=== PATIENT | female | born 1955 | race Caucasian/White ===

== ENCOUNTER → 2017-04-03 | Outpatient (CLI) | payer OTHER ==
[2016-05-20 11:40] VITALS: BP 169/93
[~2017-04-03] MED LIST: ATIVAN1 M1 PO; BYSTOLIC10 MG PO; GENTAMICIN OPTHA3 GM OD; KEPPRA1000 MG PO; LEXAPRO20 M1 PO; PATANOL OPHTHALM5 ML OD; PREMARIN1.25 M1 PO; SYNTHROID0.15 MG PO; SYNTHROID175 MCG PO; VIMPAT200 MG PO
== END ==
LOC: LAB 09:25
DX: R53.83 Other fatigue (principal); E61.1 Iron deficiency; R10.84 Generalized abdominal pain

== ENCOUNTER → 2017-04-06 | Outpatient (CLI) | payer OTHER ==
[2016-05-20 11:40] VITALS: BP 169/93
== END ==
LOC: LAB 07:54
DX: R53.83 Other fatigue (principal); E61.1 Iron deficiency

== ENCOUNTER → 2017-05-03 | Outpatient (CLI) | payer OTHER ==
[2016-05-20 11:40] VITALS: BP 169/93
== END ==
LOC: LAB 15:07
DX: E03.9 Hypothyroidism, unspecified (principal); I10 Essential (primary) hypertension; G47.33 Obstructive sleep apnea (adult) (pediatric); G40.802 Other epilepsy, not intractable, without status epilepticus

== ENCOUNTER → 2017-05-22 | Outpatient (CLI) | payer OTHER ==
[2016-05-20 11:40] VITALS: BP 169/93
== END ==
LOC: LAB 12:44
DX: R53.83 Other fatigue (principal); E61.1 Iron deficiency; E03.4 Atrophy of thyroid (acquired)

== ENCOUNTER → 2017-07-08 | Outpatient (CLI) | payer OTHER ==
[2016-05-20 11:40] VITALS: BP 169/93
== END ==
LOC: LAB 15:11
DX: Z00.00 Encounter for general adult medical examination without abnormal findings (principal); I10 Essential (primary) hypertension; E03.9 Hypothyroidism, unspecified; Z12.11 Encounter for screening for malignant neoplasm of colon; E61.1 Iron deficiency

== ENCOUNTER → 2017-07-09 | Outpatient (CLI) | payer OTHER ==
[2016-05-20 11:40] VITALS: BP 169/93
== END ==
LOC: MAMMO 12:53
DX: Z12.31 Encounter for screening mammogram for malignant neoplasm of breast (principal)
CPT/HCPCS: G0202

== ENCOUNTER → 2017-08-08 | Outpatient (CLI) | payer OTHER ==
[2016-05-20 11:40] VITALS: BP 169/93
== END ==
LOC: LAB 13:24
DX: Z12.11 Encounter for screening for malignant neoplasm of colon (principal)

== ENCOUNTER → 2017-08-08 | Outpatient (CLI) | payer OTHER ==
[2016-05-20 11:40] VITALS: BP 169/93
== END ==
LOC: MAMMO 13:15
DX: R92.8 Other abnormal and inconclusive findings on diagnostic imaging of breast (principal)

== ENCOUNTER → 2018-02-18 | Outpatient (CLI) | payer OTHER ==
[2016-05-20 11:40] VITALS: BP 169/93
[2018-02-18 10:36] LABS: EOS % 0.6 % (1.0-5.0); HEMATOCRIT 43.8 % (37.0-47.0); HEMOGLOBIN 14.2 g/dL (12.5-16.0); LYMPH# 2.6 (1.50-4.00); MEAN CELL VOLUME 94 fl (78-100); MEAN CORPUSCULAR HEMOGLOBIN 30 pg (27-31); MEAN CORPUSCULAR HGB CONC 32 g/dL (33-37); MONO # 0.7 (0.20-0.80); NEU # 3.4 (1.40-6.50); PLATELET COUNT 272 K/mm3 (130-400); RED BLOOD COUNT 4.67 M/mm3 (4.10-5.30); RED CELL DISTRIBUTION WIDTH 12.8 % (11.5-14.5); WHITE BLOOD COUNT 6.8 K/mm3 (4.8-10.8)
[2018-02-18 10:50] LABS: ALBUMIN 4.3 g/dL (3.5-5.0); CALCIUM 9.5 mg/dL (8.4-10.2); POTASSIUM 4.2 mmol/L (3.6-5.0); TOTAL BILIRUBIN 0.3 mg/dL (0.2-1.3); TOTAL PROTEIN 8.3 g/dL (6.3-8.2)
[2018-02-18 11:40] LABS: ERYTHROCYTE SEDIMENTATION RATE 23 mm/hr (0-30)
[2018-02-19 01:22] LABS: T3 TOTAL 139 ng/dL (87-178)
== END ==
LOC: LAB 10:20
PROVIDERS: Internal Medicine
DX: Z00.00 Encounter for general adult medical examination without abnormal findings (principal); Z12.11 Encounter for screening for malignant neoplasm of colon; E61.1 Iron deficiency; I10 Essential (primary) hypertension; R20.2 Paresthesia of skin; E03.9 Hypothyroidism, unspecified; G40.802 Other epilepsy, not intractable, without status epilepticus; Z88.1 Allergy status to other antibiotic agents; Z88.2 Allergy status to sulfonamides

== ENCOUNTER → 2018-05-13 | Outpatient (CLI) | payer OTHER ==
[2016-05-20 11:40] VITALS: BP 169/93
== END ==
LOC: LAB 11:12
PROVIDERS: Internal Medicine
DX: Z00.00 Encounter for general adult medical examination without abnormal findings (principal); E03.9 Hypothyroidism, unspecified; G40.802 Other epilepsy, not intractable, without status epilepticus

== ENCOUNTER → 2018-09-08 | Outpatient (CLI) | payer OTHER ==
[2016-05-20 11:40] VITALS: BP 169/93
[2018-09-08 12:23] LABS: EOS # 0.1 (0.04-0.40); EOS % 1.7 % (1.0-5.0); HEMATOCRIT 37.1 % (37.0-47.0); HEMOGLOBIN 12.6 g/dL (12.5-16.0); LYMPH# 2.9 (1.50-4.00); MEAN CELL VOLUME 95 fl (78-100); MEAN CORPUSCULAR HEMOGLOBIN 32 pg (27-31); MEAN CORPUSCULAR HGB CONC 34 g/dL (33-37); MEAN PLATELET VOLUME 9.9 fl (7.4-10.4); MONO # 0.8 (0.20-0.80); NEU # 4.1 (1.40-6.50); PLATELET COUNT 252 K/mm3 (130-400); RED BLOOD COUNT 3.92 M/mm3 (4.10-5.30); RED CELL DISTRIBUTION WIDTH 12.1 % (11.5-14.5)
[2018-09-08 13:03] LABS: ALBUMIN 4.1 g/dL (3.5-5.0); CALCIUM 9.5 mg/dL (8.4-10.2); POTASSIUM 3.9 mmol/L (3.6-5.0); TOTAL BILIRUBIN 0.4 mg/dL (0.2-1.3)
[2018-09-08 13:45] LABS: ERYTHROCYTE SEDIMENTATION RATE 21 mm/hr (0-30)
[2018-09-09 01:42] LABS: T3 TOTAL 127 ng/dL (87-178)
== END ==
LOC: LAB 11:58
PROVIDERS: Internal Medicine
DX: Z00.00 Encounter for general adult medical examination without abnormal findings (principal); I10 Essential (primary) hypertension; E03.9 Hypothyroidism, unspecified; R20.2 Paresthesia of skin; E61.1 Iron deficiency

== ENCOUNTER 2018-12-26 08:42 | Outpatient (RCR) | payer OTHER ==
[2018-10-02 13:50] VITALS: BP 183/100
[2018-10-02 14:03] VITALS: BP 189/100
[2018-10-09 13:30] VITALS: BP 173/103
--- NOTE | 2018-10-09 13:45 | NUR ---
Pt BP high while here. Pt reports that she has not taken her BP med yet today and is heading to pharmacy to shrimp picker today. Denies any symptoms from high BP.
[2018-10-09 13:47] VITALS: BP 186/104
--- NOTE | 2018-10-09 13:50 | NUR ---
Pt leaves ambulatory w/ steady gait.
[2018-10-21 12:23] VITALS: BP 156/92
[2018-10-28 12:51] VITALS: BP 172/94
[2018-11-25 13:49] VITALS: BP 185/102
[2018-11-25 15:07] VITALS: BP 180/95
--- NOTE | 2018-11-25 15:10 | NUR ---
Message left with Hallie at Dr. Harmon's office regarding patients high blood pressure. Faxed list of BP's from outpatient visits to Dr. Harmon. Patient plans to call clinic tomorrow to address hypertension. Denies symptoms. Denies need to be seen in ED. Ambulatory out of facility. Steady gait noted.
[~2018-12-26] VITALS: Ht 160 cm; Wt 83.6 kg
[~2018-12-26 08:42] MED LIST changes: +BYSTOLIC20 MG PO
[2018-12-26 09:56] VITALS: BP 166/85
[2018-12-26 11:02] VITALS: BP 180/91
== END 2018-12-31 | disposition home or self-care (01) ==
LOC: AMSURD
DX: E61.1 Iron deficiency (principal); K90.89 Other intestinal malabsorption
CPT/HCPCS: J2916

== ENCOUNTER 2019-03-30 10:44 | Outpatient (RCR) | payer OTHER ==
[2019-01-26 12:00] VITALS: BP 198/96
[2019-01-26 13:49] VITALS: BP 132/78
[2019-02-25 13:16] VITALS: BP 175/94
[2019-02-25 14:21] VITALS: BP 160/94
[~2019-03-30] VITALS: Ht 160 cm; Wt 83.6 kg
[2019-03-30 10:52] VITALS: BP 184/97
[2019-03-30 11:49] VITALS: BP 209/107
== END 2019-04-26 | disposition still patient (30) ==
LOC: AMSURD
DX: E61.1 Iron deficiency (principal); K90.9 Intestinal malabsorption, unspecified
CPT/HCPCS: J2916; J7050

== ENCOUNTER 2019-06-27 12:51 | Outpatient (RCR) | payer OTHER ==
[2019-04-28 14:36] VITALS: BP 160/100
[2019-05-28 13:10] VITALS: BP 127/72
[2019-05-28 14:15] VITALS: BP 138/52
[~2019-06-27] VITALS: Ht 160 cm; Wt 83.6 kg
[2019-06-27 13:08] VITALS: BP 144/70
[2019-06-27 14:00] VITALS: BP 177/89
[2019-07-29] MEDS ORDERED: TEGRETOL X200 MG/TA1 PO (14:07)
[2019-07-29] MEDS ORDERED: LEVOTHYROXINE175 MCG PO (14:07)
== END 2019-07-27 | disposition still patient (30) ==
LOC: AMSURD
DX: E61.1 Iron deficiency (principal); K90.9 Intestinal malabsorption, unspecified
CPT/HCPCS: J2916

== ENCOUNTER → 2019-07-23 | Outpatient (CLI) | payer OTHER ==
[2019-06-27 14:00] VITALS: BP 177/89
[~2019-07-23] MED LIST changes: +LEVOTHYROXINE175 MCG PO; +TEGRETOL X200 MG/TA1 PO
[2019-07-23 12:22] LABS: EOS # 0.1 (0.04-0.40); EOS % 0.8 % (1.0-5.0); HEMATOCRIT 37.7 % (37.0-47.0); HEMOGLOBIN 12.6 g/dL (12.5-16.0); LYMPH# 3.5 (1.50-4.00); MEAN CELL VOLUME 98 fl (78-100); MEAN CORPUSCULAR HEMOGLOBIN 33 pg (27-31); MEAN CORPUSCULAR HGB CONC 33 g/dL (33-37); MEAN PLATELET VOLUME 10.5 fl (7.4-10.4); NEU # 3.9 (1.40-6.50); PLATELET COUNT 200 K/mm3 (130-400); RED BLOOD COUNT 3.85 M/mm3 (4.10-5.30); WHITE BLOOD COUNT 8.6 K/mm3 (4.8-10.8)
[2019-07-23 12:32] LABS: ALBUMIN 4.3 g/dL (3.4-4.8); POTASSIUM 3.2 mmol/L (3.5-5.1)
[2019-07-23 12:33] LABS: CALCIUM 9.6 mg/dL (8.3-10.5)
[2019-07-23 12:34] LABS: TOTAL PROTEIN 7.4 g/dL (6.2-8.1)
[2019-07-23 12:36] LABS: TOTAL BILIRUBIN 0.4 mg/dL (0.2-1.2)
[2019-07-23 12:41] LABS: MAGNESIUM 1.62 mg/dL (1.60-2.60)
[2019-07-23 13:26] LABS: ERYTHROCYTE SEDIMENTATION RATE 16 mm/hr (0-30)
[2019-07-24 00:29] LABS: T3 TOTAL 109 ng/dL (87-178)
== END ==
LOC: LAB 12:00
PROVIDERS: Internal Medicine
DX: Z00.00 Encounter for general adult medical examination without abnormal findings (principal); Z12.11 Encounter for screening for malignant neoplasm of colon; E61.1 Iron deficiency; I10 Essential (primary) hypertension; E03.9 Hypothyroidism, unspecified; K90.89 Other intestinal malabsorption

== ENCOUNTER → 2019-07-29 | Outpatient (CLI) | payer OTHER ==
[2019-07-29 14:17] LABS: POTASSIUM 3.9 mmol/L (3.5-5.1)
[2019-07-29 14:18] LABS: CALCIUM 9.4 mg/dL (8.3-10.5)
[2019-07-29 14:25] LABS: MAGNESIUM 1.83 mg/dL (1.60-2.60)
== END ==
LOC: LAB 13:52
PROVIDERS: Internal Medicine
DX: E87.6 Hypokalemia (principal)

== ENCOUNTER 2019-08-29 12:47 | Outpatient (RCR) | payer OTHER ==
[2019-07-29 10:30] VITALS: BP 158/108
[2019-07-29 15:00] VITALS: BP 178/105
[~2019-08-29] VITALS: Ht 160 cm; Wt 83.6 kg
[2019-08-29 12:58] VITALS: BP 184/135
[2019-08-29 14:28] VITALS: BP 176/105
== END 2019-08-29 18:00 | disposition home or self-care (01) ==
LOC: AMSURD 12:47
DX: E61.1 Iron deficiency (principal); K90.9 Intestinal malabsorption, unspecified
CPT/HCPCS: J2916

== ENCOUNTER 2019-10-17 11:21 | Emergency (ER) | payer OTHER ==
[~2019-10-17] VITALS: Ht 160 cm; Wt 79.0 kg
[2019-10-17 11:50] LABS: EOS # 0.1 (0.04-0.40); EOS % 0.6 % (1.0-5.0); HEMATOCRIT 43.7 % (37.0-47.0); HEMOGLOBIN 14.2 g/dL (12.5-16.0); MEAN CELL VOLUME 99 fl (78-100); MEAN CORPUSCULAR HEMOGLOBIN 32 pg (27-31); MEAN CORPUSCULAR HGB CONC 33 g/dL (33-37); MEAN PLATELET VOLUME 10.4 fl (7.4-10.4); MONO # 0.8 (0.20-0.80); NEU # 4.7 (1.40-6.50); PLATELET COUNT 219 K/mm3 (130-400); RED BLOOD COUNT 4.43 M/mm3 (4.10-5.30); RED CELL DISTRIBUTION WIDTH 12.4 % (11.5-14.5); WHITE BLOOD COUNT 7.7 K/mm3 (4.8-10.8)
[2019-10-17 12:00] LABS: URINE APPEARANCE CLEAR; URINE BILIRUBIN NEGATIVE (NEGATIVE); URINE BLOOD NEGATIVE (NEGATIVE); URINE COLOR STRAW; URINE GLUCOSE NEGATIVE (NEGATIVE); URINE KETONE NEGATIVE (NEGATIVE); URINE LEUKOCYTE ESTERASE NEGATIVE (NEGATIVE); URINE NITRATE NEGATIVE (NEGATIVE); URINE PROTEIN(semi-quant) NEGATIVE (NEGATIVE); URINE UROBILINOGEN NORMAL (NORMAL); URINE WBC 0-1 /hpf (0-3)
[2019-10-17 12:01] LABS: ALBUMIN 4.4 g/dL (3.4-4.8)
[2019-10-17 12:02] LABS: CALCIUM 9.8 mg/dL (8.3-10.5)
[2019-10-17 12:03] LABS: TOTAL PROTEIN 7.8 g/dL (6.2-8.1)
[2019-10-17 12:05] LABS: TOTAL BILIRUBIN 0.4 mg/dL (0.2-1.2)
[2019-10-17] MEDS ORDERED: FAMOTIDINE20 MG PO (15:47)
[2019-10-17] MEDS ORDERED: ZOFRAN ODT4 MG PO (15:47)
[2019-10-17 16:05] VITALS: BP 189/110
== END 2019-10-17 16:06 | disposition home or self-care (01) ==
LOC: ED 11:21
PROVIDERS: Family Medicine
DX: K52.9 Noninfective gastroenteritis and colitis, unspecified (principal); I10 Essential (primary) hypertension; G40.909 Epilepsy, unspecified, not intractable, without status epilepticus; Z90.710 Acquired absence of both cervix and uterus; Z90.49 Acquired absence of other specified parts of digestive tract; Z87.442 Personal history of urinary calculi

== ENCOUNTER 2019-12-07 12:34 | Outpatient (RCR) | payer BC ==
[2019-10-02 14:15] VITALS: BP 176/95
[2019-11-06 13:27] VITALS: BP 169/109
[~2019-12-07] VITALS: Ht 160 cm; Wt 77.3 kg
[~2019-12-07 12:34] MED LIST changes: +FAMOTIDINE20 MG PO; +ZOFRAN ODT4 MG PO
[2019-12-07 13:15] VITALS: BP 188/97
[2019-12-07 14:27] VITALS: BP 194/78
[2019-12-28] MEDS ORDERED: FYCOMPA2 MG PO (14:03)
[2019-12-28] MEDS ORDERED: VITAMIN D350 MC2 PO (14:06)
[2019-12-28] MEDS ORDERED: HYZAAR 100-251 EACH PO (16:41)
== END 2019-12-31 | disposition still patient (30) ==
LOC: AMSURD
DX: E61.1 Iron deficiency (principal); K90.9 Intestinal malabsorption, unspecified
CPT/HCPCS: J2916

== ENCOUNTER 2019-12-28 13:52 | Emergency (ER) | payer BC ==
[~2019-12-28] VITALS: Ht 160 cm; Wt 80.9 kg
[2019-12-28] MEDS ORDERED: FYCOMPA2 MG PO (14:03)
[2019-12-28] MEDS ORDERED: VITAMIN D350 MC2 PO (14:06)
[2019-12-28 14:34] LABS: ALBUMIN 4.5 g/dL (3.4-4.8); HEMOGLOBIN 14.4 g/dL (12.5-16.0); MEAN CELL VOLUME 99 fl (78-100); MEAN CORPUSCULAR HEMOGLOBIN 32 pg (27-31); MEAN CORPUSCULAR HGB CONC 33 g/dL (33-37); MEAN PLATELET VOLUME 10.3 fl (7.4-10.4); PLATELET COUNT 252 K/mm3 (130-400); POTASSIUM 3.8 mmol/L (3.5-5.1); RED BLOOD COUNT 4.45 M/mm3 (4.10-5.30); RED CELL DISTRIBUTION WIDTH 13.2 % (11.5-14.5); SODIUM 140 mmol/L (136-145); WHITE BLOOD COUNT 6.7 K/mm3 (4.8-10.8)
[2019-12-28 14:35] LABS: CALCIUM 10.1 mg/dL (8.3-10.5); LYMPHOCYTE 37 % (20-51); MONOCYTE 15 % (3-10); NEUTROPHILS 46 % (42-75)
[2019-12-28 14:37] LABS: GLUCOSE 113 mg/dL (65-105); TOTAL PROTEIN 7.7 g/dL (6.2-8.1)
[2019-12-28 14:38] LABS: CARBON DIOXIDE 26 mmol/L (23-31); TOTAL BILIRUBIN 0.6 mg/dL (0.2-1.2)
[2019-12-28 14:42] LABS: AST-SGOT 32 U/L (5-34)
[2019-12-28 14:43] LABS: ALT/SGPT 38 U/L (0-55)
[2019-12-28 14:49] LABS: TROPONIN-I < 0.03 ng/mL (<0.030)
[2019-12-28] MEDS ORDERED: HYZAAR 100-251 EACH PO (16:41)
[2019-12-28 16:55] VITALS: BP 160/95
[2019-12-28 17:15] LABS: URINE APPEARANCE CLEAR; URINE BILIRUBIN NEGATIVE (NEGATIVE); URINE BLOOD NEGATIVE (NEGATIVE); URINE COLOR YELLOW; URINE GLUCOSE NEGATIVE (NEGATIVE); URINE KETONE NEGATIVE (NEGATIVE); URINE LEUKOCYTE ESTERASE NEGATIVE (NEGATIVE); URINE NITRATE NEGATIVE (NEGATIVE); URINE PROTEIN(semi-quant) 1+ mg/dL (NEGATIVE); URINE UROBILINOGEN NORMAL (NORMAL)
== END 2019-12-28 16:58 | disposition home or self-care (01) ==
LOC: ED 13:52
PROVIDERS: Internal Medicine; Nurse Practitioner Primary Care
DX: I16.0 Hypertensive urgency (principal); I10 Essential (primary) hypertension; G40.909 Epilepsy, unspecified, not intractable, without status epilepticus; Z88.0 Allergy status to penicillin; Z88.2 Allergy status to sulfonamides

== ENCOUNTER 2020-01-07 16:32 | Emergency (ER) | payer BC ==
[~2020-01-07] VITALS: Ht 160 cm; Wt 78.2 kg
[~2020-01-07 16:32] MED LIST changes: +FYCOMPA2 MG PO; +HYZAAR 100-251 EACH PO; +VITAMIN D350 MC2 PO
[2020-01-07] MEDS ORDERED: COZAAR100 MG PO (16:49)
[2020-01-07 19:01] VITALS: BP 164/96
== END 2020-01-07 18:51 | disposition home or self-care (01) ==
LOC: ED 16:32
DX: I10 Essential (primary) hypertension (principal); G40.909 Epilepsy, unspecified, not intractable, without status epilepticus; Z88.0 Allergy status to penicillin; Z88.2 Allergy status to sulfonamides

== ENCOUNTER 2020-03-28 13:05 | Outpatient (RCR) | payer BC ==
[2020-01-23 13:10] VITALS: BP 179/115
[2020-01-23 14:39] VITALS: BP 180/98
[2020-02-24 13:05] VITALS: BP 198/101
[2020-02-24 14:41] VITALS: BP 188/96
[2020-02-24 14:42] VITALS: BP 188/96
[~2020-03-28] VITALS: Ht 160 cm; Wt 78.2 kg
[~2020-03-28 13:05] MED LIST changes: +AMLODIPINE BESYL5 MG PO; +COZAAR100 MG PO
[2020-03-28 13:30] VITALS: BP 126/60
[2020-03-28] MEDS ORDERED: HYZAAR 100-251 EACH PO (14:04)
[2020-03-28] MEDS ORDERED: FAMOTIDINE20 MG PO (14:05)
[2020-03-28 15:01] VITALS: BP 134/54
== END 2020-04-22 | disposition still patient (30) ==
LOC: AMSURD
DX: E61.1 Iron deficiency (principal); K90.9 Intestinal malabsorption, unspecified
CPT/HCPCS: J2916

== ENCOUNTER → 2020-06-06 | Outpatient (CLI) | payer BC ==
[2020-06-04 16:10] VITALS: BP 188/86
[~2020-06-06] MED LIST changes: +VITAMIN D21250 MCG PO
[2020-06-06 15:28] LABS: HEMATOCRIT 42.8 % (37.0-47.0); HEMOGLOBIN 14.2 g/dL (12.5-16.0); MEAN CELL VOLUME 96 fl (78-100); MEAN CORPUSCULAR HEMOGLOBIN 32 pg (27-31); MEAN CORPUSCULAR HGB CONC 33 g/dL (33-37); MEAN PLATELET VOLUME 10.2 fl (7.4-10.4); PLATELET COUNT 254 K/mm3 (130-400); RED BLOOD COUNT 4.47 M/mm3 (4.10-5.30); WHITE BLOOD COUNT 8.4 K/mm3 (4.8-10.8)
[2020-06-06 15:41] LABS: ALBUMIN 4.3 g/dL (3.4-4.8); POTASSIUM 3.9 mmol/L (3.5-5.1)
[2020-06-06 15:42] LABS: CALCIUM 9.4 mg/dL (8.3-10.5)
[2020-06-06 15:44] LABS: TOTAL PROTEIN 7.5 g/dL (6.2-8.1)
[2020-06-06 15:45] LABS: TOTAL BILIRUBIN 0.4 mg/dL (0.2-1.2)
[2020-06-06 15:50] LABS: MAGNESIUM 1.77 mg/dL (1.60-2.60)
[2020-06-06 16:20] LABS: LYMPHOCYTE 26 % (20-51); MONOCYTE 10 % (3-10); NEUTROPHILS 63 % (42-75)
[2020-06-06 16:47] LABS: ERYTHROCYTE SEDIMENTATION RATE 13 mm/hr (0-30)
[2020-06-07 15:14] LABS: LEVETIRACETAM (KEPPRA) 59 ug/mL (5-45)
[2020-06-08 09:14] LABS: T3 TOTAL 120 ng/dL (60-180)
== END ==
LOC: LAB 15:01
PROVIDERS: Internal Medicine
DX: Z00.00 Encounter for general adult medical examination without abnormal findings (principal); Z12.11 Encounter for screening for malignant neoplasm of colon; G40.909 Epilepsy, unspecified, not intractable, without status epilepticus; I10 Essential (primary) hypertension; E61.1 Iron deficiency; E03.9 Hypothyroidism, unspecified

== ENCOUNTER 2020-07-02 14:06 | Outpatient (RCR) | payer BC ==
[2020-04-30 11:18] VITALS: BP 168/82
[2020-04-30 11:50] VITALS: BP 146/62
[2020-06-04 15:12] VITALS: BP 189/95
[2020-06-04 16:10] VITALS: BP 188/86
[~2020-07-02] VITALS: Ht 160 cm; Wt 78.2 kg
[2020-07-02 14:24] VITALS: BP 151/81
== END 2020-07-02 14:15 | disposition still patient (30) ==
LOC: AMSURD 14:06
DX: E61.1 Iron deficiency (principal); K90.9 Intestinal malabsorption, unspecified
CPT/HCPCS: J2916

== ENCOUNTER → 2020-09-22 | Outpatient (CLI) | payer BC ==
[2020-09-20 13:30] VITALS: BP 153/85
[~2020-09-22] MED LIST changes: +LOSARTAN POTAS100 MG PO
[2020-09-22 12:47] LABS: EOS # 0.1 (0.04-0.40); EOS % 0.8 % (1.0-5.0); HEMATOCRIT 43.5 % (37.0-47.0); HEMOGLOBIN 14.6 g/dL (12.5-16.0); LYMPH# 2.9 (1.50-4.00); MEAN CELL VOLUME 97 fl (78-100); MEAN CORPUSCULAR HEMOGLOBIN 33 pg (27-31); MEAN CORPUSCULAR HGB CONC 34 g/dL (33-37); MEAN PLATELET VOLUME 10.5 fl (7.4-10.4); MONO # 1.1 (0.20-0.80); NEU # 5.9 (1.40-6.50); PLATELET COUNT 292 K/mm3 (130-400); RED BLOOD COUNT 4.47 M/mm3 (4.10-5.30); RED CELL DISTRIBUTION WIDTH 12.8 % (11.5-14.5); WHITE BLOOD COUNT 10.1 K/mm3 (4.8-10.8)
[2020-09-22 13:01] LABS: ALBUMIN 4.4 g/dL (3.4-4.8)
[2020-09-22 13:02] LABS: POTASSIUM 3.4 mmol/L (3.5-5.1)
[2020-09-22 13:03] LABS: CALCIUM 10.1 mg/dL (8.3-10.5)
[2020-09-22 13:06] LABS: TOTAL BILIRUBIN 0.6 mg/dL (0.2-1.2)
== END ==
LOC: LAB 12:19
PROVIDERS: Internal Medicine
DX: G40.909 Epilepsy, unspecified, not intractable, without status epilepticus (principal)

== ENCOUNTER → 2020-10-10 | Outpatient (CLI) | payer BC ==
[2020-09-20 13:30] VITALS: BP 153/85
== END ==
LOC: RAD 08:52
DX: M19.071 Primary osteoarthritis, right ankle and foot (principal)

== ENCOUNTER 2020-10-17 13:07 | Outpatient (RCR) | payer BC ==
[2020-08-12 13:58] VITALS: BP 187/98
[2020-08-12 15:08] VITALS: BP 223/120
--- NOTE | 2020-08-12 15:09 | NUR ---
PT REQUESTS TO LEAVE AFTER DISCHARGE BP TAKEN. REPORTS SHE IS WORKED UP AFTER TALKING ABOUT RECENT EVENTS AND THAT SHE HASNT TAKEN HER BP MEDS TODAY. "THATS NORMAL FOR ME" PT SIGNS AMA FORM.
[2020-09-20 13:30] VITALS: BP 153/85
[~2020-10-17] VITALS: Ht 160 cm; Wt 78.2 kg
[2020-10-17 13:39] VITALS: BP 169/98
== END 2020-10-24 | disposition home or self-care (01) ==
LOC: AMSURD
DX: E61.1 Iron deficiency (principal); K90.9 Intestinal malabsorption, unspecified
CPT/HCPCS: J2916

== ENCOUNTER 2020-11-26 13:14 | Outpatient (RCR) | payer BC ==
[2020-11-26 14:00] VITALS: BP 133/70
[2020-11-26 15:27] VITALS: BP 158/96
[2020-12-19] MEDS ORDERED: LEXAPRO 10MG10 MG PO (20:06)
[2020-12-19] MEDS ORDERED: ZOFRAN ODT4 MG PO (22:00)
[2020-12-19] MEDS ORDERED: CIPRO500 M1 PO (22:00)
[2021-02-23] MEDS ORDERED: PROTONIX20 M1 PO (19:07)
[2021-02-23] MEDS ORDERED: POTASSIUM CHLO20 ME3 PO (19:26)
== END 2021-02-24 ==
LOC: AMSURD
DX: E61.1 Iron deficiency (principal); K90.89 Other intestinal malabsorption
CPT/HCPCS: J2916

== ENCOUNTER 2020-12-19 18:32 | Emergency (ER) | payer BC ==
[2020-12-19 19:12] LABS: ALBUMIN 3.3 g/dL (3.4-4.8)
[2020-12-19 19:14] LABS: TOTAL PROTEIN 7.1 g/dL (6.2-8.1)
[2020-12-19 19:28] LABS: CALCIUM 8.5 mg/dL (8.3-10.5)
[2020-12-19 19:31] LABS: TOTAL BILIRUBIN 0.4 mg/dL (0.2-1.2)
[2020-12-19 19:32] LABS: WHITE BLOOD COUNT 24.7 K/mm3 (4.8-10.8)
[2020-12-19 19:33] LABS: HEMATOCRIT 39.9 % (37.0-47.0); HEMOGLOBIN 13.6 g/dL (12.5-16.0); MEAN CELL VOLUME 100 fl (78-100); MEAN CORPUSCULAR HEMOGLOBIN 34 pg (27-31); MEAN CORPUSCULAR HGB CONC 34 g/dL (33-37); MEAN PLATELET VOLUME 10.1 fl (7.4-10.4); PLATELET COUNT 256 K/mm3 (130-400); RED BLOOD COUNT 4.01 M/mm3 (4.10-5.30); RED CELL DISTRIBUTION WIDTH 12.7 % (11.5-14.5)
[2020-12-19 19:37] LABS: POTASSIUM 2.5 mmol/L (3.5-5.1)
[2020-12-19] MEDS ORDERED: LEXAPRO 10MG10 MG PO (20:06)
[2020-12-19 20:22] LABS: URINE APPEARANCE CLOUDY; URINE BILIRUBIN 2+ (NEGATIVE); URINE COLOR YELLOW; URINE GLUCOSE NEGATIVE (NEGATIVE); URINE KETONE 1+ (NEGATIVE); URINE PROTEIN(semi-quant) 2+ mg/dL (NEGATIVE)
[2020-12-19 20:23] LABS: URINE BLOOD 50 ery/uL (NEGATIVE); URINE LEUKOCYTE ESTERASE 2+ (NEGATIVE); URINE NITRATE NEGATIVE (NEGATIVE); URINE UROBILINOGEN 1 mg/dL (NORMAL); URINE WBC >50 /hpf (0-3)
[2020-12-19 20:31] LABS: LYMPHOCYTE 9 % (20-51); MONOCYTE 13 % (3-10); NEUTROPHILS 78 % (42-75); TEAR DROP CELLS 1+
[2020-12-19] MEDS ORDERED: ZOFRAN ODT4 MG PO (22:00)
[2020-12-19] MEDS ORDERED: CIPRO500 M1 PO (22:00)
[2020-12-19 22:14] VITALS: BP 148/76
== END 2020-12-19 22:14 | disposition home or self-care (01) ==
LOC: ED 18:32
PROVIDERS: Nurse Practitioner
DX: N12 Tubulo-interstitial nephritis, not specified as acute or chronic (principal); E87.6 Hypokalemia; G40.909 Epilepsy, unspecified, not intractable, without status epilepticus; I10 Essential (primary) hypertension; K21.9 Gastro-esophageal reflux disease without esophagitis; Z20.822 Contact with and (suspected) exposure to COVID-19; Z90.710 Acquired absence of both cervix and uterus; Z85.43 Personal history of malignant neoplasm of ovary; Z90.49 Acquired absence of other specified parts of digestive tract; Z88.0 Allergy status to penicillin; Z88.2 Allergy status to sulfonamides; Z88.6 Allergy status to analgesic agent; Z79.890 Hormone replacement therapy
CPT/HCPCS: J0744; J1885; J3010; J7030; Q9967

== ENCOUNTER → 2020-12-20 | Outpatient (CLI) | payer BC ==
[2020-12-19 22:14] VITALS: BP 148/76
[~2020-12-20] MED LIST changes: +CIPRO500 M1 PO; +ELIQUIS5 MG PO; +LEXAPRO 10MG10 MG PO; +LOPRESSOR 550 MG/TAB PO; +POTASSIUM CHLO20 ME3 PO; +PROTONIX20 M1 PO; +SYNTHROID112 MCG PO; +VITAMIN D3250 MC1 PO
[2020-12-20 13:43] LABS: ALBUMIN 3.1 g/dL (3.4-4.8)
[2020-12-20 13:45] LABS: CALCIUM 8.3 mg/dL (8.3-10.5)
[2020-12-20 13:46] LABS: TOTAL PROTEIN 6.7 g/dL (6.2-8.1)
[2020-12-20 13:48] LABS: TOTAL BILIRUBIN 0.5 mg/dL (0.2-1.2)
[2020-12-20 14:22] LABS: HEMATOCRIT 37.3 % (37.0-47.0); HEMOGLOBIN 12.4 g/dL (12.5-16.0); MEAN CELL VOLUME 103 fl (78-100); MEAN CORPUSCULAR HEMOGLOBIN 34 pg (27-31); MEAN CORPUSCULAR HGB CONC 33 g/dL (33-37); MEAN PLATELET VOLUME 10.2 fl (7.4-10.4); PLATELET COUNT 256 K/mm3 (130-400); POTASSIUM 2.6 mmol/L (3.5-5.1); RED BLOOD COUNT 3.61 M/mm3 (4.10-5.30); WHITE BLOOD COUNT 21.9 K/mm3 (4.8-10.8)
[2020-12-20 14:23] LABS: LYMPHOCYTE 8 % (20-51); MONOCYTE 10 % (3-10); NEUTROPHILS 81 % (42-75)
== END ==
LOC: LAB 12:44
PROVIDERS: Internal Medicine
DX: I10 Essential (primary) hypertension (principal)

== ENCOUNTER 2021-02-23 15:37 | Emergency (ER) | payer BC ==
[~2021-02-23 15:37] MED LIST changes: -ELIQUIS5 MG PO; -LOPRESSOR 550 MG/TAB PO; -POTASSIUM CHLO20 ME3 PO; -PROTONIX20 M1 PO; -SYNTHROID112 MCG PO; -VITAMIN D3250 MC1 PO
[2021-02-23 16:28] LABS: BASO # 0.08 (0.02-0.10); EOS # 0.03 (0.04-0.40); EOS % 0.3 % (1.0-5.0); HEMATOCRIT 41.3 % (37.0-47.0); HEMOGLOBIN 14.4 g/dL (12.5-16.0); LYMPH# 3.06 (1.50-4.00); MEAN CELL VOLUME 98 fl (78-100); MEAN CORPUSCULAR HEMOGLOBIN 34 pg (27-31); MEAN CORPUSCULAR HGB CONC 35 g/dL (33-37); MEAN PLATELET VOLUME 9.9 fl (7.4-10.4); MONO # 1.47 (0.20-0.80); PLATELET COUNT 325 K/mm3 (130-400); RED CELL DISTRIBUTION WIDTH 12.8 % (11.5-14.5); WHITE BLOOD COUNT 11.1 K/mm3 (4.8-10.8)
[2021-02-23 16:55] LABS: ALBUMIN 4.3 g/dL (3.4-4.8); SODIUM 138 mmol/L (136-145)
[2021-02-23 16:56] LABS: CALCIUM 10.1 mg/dL (8.3-10.5)
[2021-02-23 16:58] LABS: GLUCOSE 113 mg/dL (65-105); TOTAL PROTEIN 8.1 g/dL (6.2-8.1)
[2021-02-23 16:59] LABS: CARBON DIOXIDE 22 mmol/L (23-31); TOTAL BILIRUBIN 0.4 mg/dL (0.2-1.2)
[2021-02-23 17:03] LABS: AST-SGOT 32 U/L (5-34)
[2021-02-23 17:04] LABS: ALT/SGPT 32 U/L (0-55)
[2021-02-23 17:18] LABS: TROPONIN-I < 0.03 ng/mL (<0.030)
[2021-02-23 18:36] LABS: URINE APPEARANCE HAZY; URINE COLOR LIGHT PINK
[2021-02-23 18:37] LABS: URINE BILIRUBIN NEGATIVE (NEGATIVE); URINE BLOOD NEGATIVE (NEGATIVE); URINE GLUCOSE NEGATIVE (NEGATIVE); URINE KETONE NEGATIVE (NEGATIVE); URINE LEUKOCYTE ESTERASE NEGATIVE (NEGATIVE); URINE NITRATE NEGATIVE (NEGATIVE); URINE PROTEIN(semi-quant) TRACE mg/dL (NEGATIVE); URINE UROBILINOGEN NORMAL (NORMAL); URINE WBC 0-1 /hpf (0-3)
[2021-02-23] MEDS ORDERED: PROTONIX20 M1 PO (19:07)
[2021-02-23 19:22] VITALS: BP 145/89
[2021-02-23] MEDS ORDERED: POTASSIUM CHLO20 ME3 PO (19:26)
== END 2021-02-23 19:22 | disposition home or self-care (01) ==
LOC: ED 15:37
PROVIDERS: Nurse Practitioner
DX: R11.2 Nausea with vomiting, unspecified (principal); R10.13 Epigastric pain; I10 Essential (primary) hypertension; Z88.0 Allergy status to penicillin; Z88.2 Allergy status to sulfonamides; Z88.6 Allergy status to analgesic agent; Z79.890 Hormone replacement therapy; Z79.899 Other long term (current) drug therapy
CPT/HCPCS: C9113; J2405; J7030

== ENCOUNTER 2021-03-15 15:00 | Emergency (ER) | payer BC ==
[~2021-03-15 15:00] MED LIST changes: +POTASSIUM CHLO20 ME3 PO; +PROTONIX20 M1 PO
[2021-03-15 15:51] LABS: ALBUMIN 4.1 g/dL (3.4-4.8); POTASSIUM 3.7 mmol/L (3.5-5.1); SODIUM 132 mmol/L (136-145)
[2021-03-15 15:52] LABS: CALCIUM 9.7 mg/dL (8.3-10.5)
[2021-03-15 15:53] LABS: GLUCOSE 220 mg/dL (65-105); TOTAL PROTEIN 7.8 g/dL (6.2-8.1)
[2021-03-15 15:55] LABS: TOTAL BILIRUBIN 0.6 mg/dL (0.2-1.2)
[2021-03-15 15:58] LABS: AST-SGOT 39 U/L (5-34)
[2021-03-15 16:00] LABS: ALT/SGPT 51 U/L (0-55)
[2021-03-15 16:05] LABS: CARBON DIOXIDE 17 mmol/L (23-31)
[2021-03-15 16:07] LABS: TROPONIN-I < 0.03 ng/mL (<0.030)
[2021-03-15 16:13] LABS: BASO # 0.05 (0.02-0.10); EOS # 0.04 (0.04-0.40); EOS % 0.3 % (1.0-5.0); HEMATOCRIT 44.8 % (37.0-47.0); HEMOGLOBIN 15.2 g/dL (12.5-16.0); LYMPH# 2.52 (1.50-4.00); MEAN CELL VOLUME 99 fl (78-100); MEAN CORPUSCULAR HEMOGLOBIN 34 pg (27-31); MEAN CORPUSCULAR HGB CONC 34 g/dL (33-37); MEAN PLATELET VOLUME 10.4 fl (7.4-10.4); MONO # 1.21 (0.20-0.80); NEU # 9.01 (1.40-6.50); PLATELET COUNT 299 K/mm3 (130-400); RED BLOOD COUNT 4.52 M/mm3 (4.10-5.30); RED CELL DISTRIBUTION WIDTH 12.3 % (11.5-14.5); WHITE BLOOD COUNT 12.9 K/mm3 (4.8-10.8)
[2021-03-15 16:17] LABS: PROTHROMBIN TIME 10.4 SECONDS (9.0-12.0)
[2021-03-15 17:18] LABS: URINE APPEARANCE CLOUDY; URINE COLOR YELLOW
[2021-03-15 17:19] LABS: URINE BILIRUBIN NEGATIVE (NEGATIVE); URINE BLOOD TRACE (NEGATIVE); URINE GLUCOSE NEGATIVE (NEGATIVE); URINE KETONE NEGATIVE (NEGATIVE); URINE LEUKOCYTE ESTERASE TRACE (NEGATIVE); URINE NITRATE NEGATIVE (NEGATIVE); URINE PROTEIN(semi-quant) 2+ mg/dL (NEGATIVE); URINE UROBILINOGEN NORMAL (NORMAL); URINE WBC 0-1 /hpf (0-3)
[2021-03-15 19:52] VITALS: BP 145/80
== END 2021-03-15 19:52 | disposition short-term general hospital (02) ==
LOC: ED 15:00
PROVIDERS: Physician Assistant
DX: I48.91 Unspecified atrial fibrillation (principal); R55 Syncope and collapse; G40.909 Epilepsy, unspecified, not intractable, without status epilepticus; E05.90 Thyrotoxicosis, unspecified without thyrotoxic crisis or storm; I10 Essential (primary) hypertension; K21.9 Gastro-esophageal reflux disease without esophagitis; F41.9 Anxiety disorder, unspecified; Z88.0 Allergy status to penicillin; Z88.2 Allergy status to sulfonamides; Z79.890 Hormone replacement therapy; Z79.899 Other long term (current) drug therapy; Z20.822 Contact with and (suspected) exposure to COVID-19
CPT/HCPCS: J7030

== ENCOUNTER 2021-04-03 13:55 | Outpatient (RCR) | payer BC ==
[2021-02-05 14:08] VITALS: BP 177/108
[2021-04-03 14:08] VITALS: BP 160/121
[2021-04-03] MEDS ORDERED: LOPRESSOR 550 MG/TAB PO (14:36)
[2021-04-03] MEDS ORDERED: ELIQUIS5 MG PO (14:36)
[2021-04-03] MEDS ORDERED: SYNTHROID112 MCG PO (14:38)
[2021-04-03] MEDS ORDERED: VITAMIN D3250 MC1 PO (14:41)
[2021-04-03 15:27] VITALS: BP 164/92
== END 2021-05-06 | disposition home or self-care (01) ==
LOC: AMSURD
DX: K90.9 Intestinal malabsorption, unspecified (principal); E61.1 Iron deficiency
CPT/HCPCS: J2916

== ENCOUNTER → 2021-05-04 | Day surgery (SDC) | payer BC ==
[~2021-05-04] MED LIST changes: +ELIQUIS5 MG PO; +LOPRESSOR 550 MG/TAB PO; +SYNTHROID112 MCG PO; +VITAMIN D3250 MC1 PO
== END ==
LOC: MSO 07:22
DX: K21.00 Gastro-esophageal reflux disease with esophagitis, without bleeding (principal); R10.13 Epigastric pain; Z80.0 Family history of malignant neoplasm of digestive organs; D50.9 Iron deficiency anemia, unspecified; I48.91 Unspecified atrial fibrillation; I10 Essential (primary) hypertension; E03.9 Hypothyroidism, unspecified; E66.9 Obesity, unspecified; F32.9 Major depressive disorder, single episode, unspecified; F41.9 Anxiety disorder, unspecified; E55.9 Vitamin D deficiency, unspecified; R56.9 Unspecified convulsions; Z79.890 Hormone replacement therapy; C56.9 Malignant neoplasm of unspecified ovary; Z85.43 Personal history of malignant neoplasm of ovary; Z79.01 Long term (current) use of anticoagulants
CPT/HCPCS: 00813; J2704; J7120

== ENCOUNTER 2021-05-22 14:17 | Outpatient (RCR) | payer BC ==
[~2021-05-22] VITALS: Ht 160 cm; Wt 78.2 kg
[2021-05-22 14:46] VITALS: BP 107/82
[2021-05-22 15:44] VITALS: BP 141/96
== END 2021-08-20 | disposition home or self-care (01) ==
LOC: AMSURD
DX: Z79.899 Other long term (current) drug therapy (principal)
CPT/HCPCS: J1756

== ENCOUNTER → 2021-05-22 | Outpatient (CLI) | payer BC ==
[2021-05-22 16:57] LABS: BASO # 0.03 (0.02-0.10); EOS # 0.08 (0.04-0.40); EOS % 1.1 % (1.0-5.0); HEMATOCRIT 39.7 % (37.0-47.0); HEMOGLOBIN 13.3 g/dL (12.5-16.0); MEAN CELL VOLUME 102 fl (78-100); MEAN CORPUSCULAR HEMOGLOBIN 34 pg (27-31); MEAN CORPUSCULAR HGB CONC 34 g/dL (33-37); MONO # 0.95 (0.20-0.80); NEU # 3.78 (1.40-6.50); PLATELET COUNT 182 K/mm3 (130-400); RED BLOOD COUNT 3.88 M/mm3 (4.10-5.30); RED CELL DISTRIBUTION WIDTH 12.6 % (11.5-14.5); WHITE BLOOD COUNT 7.3 K/mm3 (4.8-10.8)
[2021-05-22 17:02] LABS: ALBUMIN 3.7 g/dL (3.4-4.8); POTASSIUM 4.1 mmol/L (3.5-5.1)
[2021-05-22 17:04] LABS: TOTAL PROTEIN 7.1 g/dL (6.2-8.1)
[2021-05-22 17:06] LABS: TOTAL BILIRUBIN 0.4 mg/dL (0.2-1.2)
[2021-05-22 17:11] LABS: MAGNESIUM 1.76 mg/dL (1.60-2.60)
== END ==
LOC: LAB 14:20
PROVIDERS: Internal Medicine
DX: I48.0 Paroxysmal atrial fibrillation (principal); E03.4 Atrophy of thyroid (acquired); K90.9 Intestinal malabsorption, unspecified

== ENCOUNTER → 2021-06-19 | Outpatient (CLI) | payer BC | LOC: LAB 14:51 | DX: K90.9 Intestinal malabsorption, unspecified (principal); E03.4 Atrophy of thyroid (acquired) ==

== ENCOUNTER → 2021-09-22 | Outpatient (CLI) | payer BC | LOC: CARDLAB 06-09 14:23 → CARDREHAB 08:31 | DX: I48.0 Paroxysmal atrial fibrillation (principal) | CPT/HCPCS: A9500 ==

== ENCOUNTER → 2021-10-12 | Outpatient (CLI) | payer BC | LOC: LAB 11:41 | DX: K90.9 Intestinal malabsorption, unspecified (principal); E03.4 Atrophy of thyroid (acquired) ==

== ENCOUNTER → 2021-12-12 | Outpatient (CLI) | payer BC ==
[2021-12-12 09:40] LABS: BASO # 0.04 K/mm3 (0.02-0.10); EOS # 0.11 K/mm3 (0.04-0.40); EOS % 1.1 % (1.0-5.0); HEMATOCRIT 41.8 % (37.0-47.0); HEMOGLOBIN 14.4 g/dL (12.5-16.0); LYMPH# 3.25 K/mm3 (1.50-4.00); MEAN CELL VOLUME 102 fl (78-100); MEAN CORPUSCULAR HEMOGLOBIN 35 pg (27-31); MEAN CORPUSCULAR HGB CONC 34 g/dL (33-37); MEAN PLATELET VOLUME 11.1 fl (7.4-10.4); MONO # 1.18 K/mm3 (0.20-0.80); NEU # 5.06 K/mm3 (1.40-6.50); PLATELET COUNT 241 K/mm3 (130-400); RED BLOOD COUNT 4.09 M/mm3 (4.10-5.30); WHITE BLOOD COUNT 9.7 K/mm3 (4.8-10.8)
[2021-12-12 10:26] LABS: ALBUMIN 3.9 g/dL (3.4-4.8); POTASSIUM 3.4 mmol/L (3.5-5.1)
[2021-12-12 10:28] LABS: TOTAL PROTEIN 7.5 g/dL (6.2-8.1)
[2021-12-12 10:30] LABS: TOTAL BILIRUBIN 0.6 mg/dL (0.2-1.2)
[2021-12-12 10:35] LABS: MAGNESIUM 1.61 mg/dL (1.60-2.60)
[2021-12-13 13:46] LABS: ANA SCREEN with REFLEX Negative (Negative)
[2021-12-14 21:18] LABS: LEVETIRACETAM (KEPPRA) 64 ug/mL (5-45)
== END ==
LOC: LAB 08:49
PROVIDERS: Internal Medicine
DX: I48.0 Paroxysmal atrial fibrillation (principal); E03.4 Atrophy of thyroid (acquired); K90.9 Intestinal malabsorption, unspecified; G40.909 Epilepsy, unspecified, not intractable, without status epilepticus; Z20.822 Contact with and (suspected) exposure to COVID-19

== ENCOUNTER → 2022-07-17 | Outpatient (CLI) | payer BC ==
[2022-07-17 16:02] LABS: BASO # 0.05 K/mm3 (0.02-0.10); EOS # 0.02 K/mm3 (0.04-0.40); EOS % 0.2 % (1.0-5.0); HEMATOCRIT 44.3 % (37.0-47.0); HEMOGLOBIN 14.9 g/dL (12.5-16.0); LYMPH# 2.14 K/mm3 (1.50-4.00); MEAN CELL VOLUME 111 fl (78-100); MEAN CORPUSCULAR HEMOGLOBIN 37 pg (27-31); MEAN CORPUSCULAR HGB CONC 34 g/dL (33-37); MEAN PLATELET VOLUME 10.1 fl (7.4-10.4); MONO # 1.14 K/mm3 (0.20-0.80); NEU # 4.73 K/mm3 (1.40-6.50); PLATELET COUNT 193 K/mm3 (130-400); RED BLOOD COUNT 4.01 M/mm3 (4.10-5.30); RED CELL DISTRIBUTION WIDTH 11.7 % (11.5-14.5); WHITE BLOOD COUNT 8.2 K/mm3 (4.8-10.8)
[2022-07-17 16:16] LABS: POTASSIUM 4.4 mmol/L (3.5-5.1)
[2022-07-17 16:17] LABS: CALCIUM 9.6 mg/dL (8.3-10.5)
[2022-07-17 16:18] LABS: TOTAL PROTEIN 7.7 g/dL (6.2-8.1)
[2022-07-17 16:24] LABS: MAGNESIUM 1.92 mg/dL (1.60-2.60)
[2022-07-17 17:46] LABS: TOTAL BILIRUBIN 0.7 mg/dL (0.2-1.2)
[2022-07-19 05:48] LABS: LEVETIRACETAM (KEPPRA) 68 ug/mL (5-45)
== END ==
LOC: LAB 15:22
PROVIDERS: Internal Medicine
DX: I48.0 Paroxysmal atrial fibrillation (principal); G40.909 Epilepsy, unspecified, not intractable, without status epilepticus; E03.4 Atrophy of thyroid (acquired); K90.9 Intestinal malabsorption, unspecified

== ENCOUNTER → 2022-09-12 | Outpatient (CLI) | payer BC, MEDICARE ==
[2022-09-12 12:58] LABS: BASO # 0.07 K/mm3 (0.02-0.10); EOS % 1.1 % (1.0-5.0); HEMATOCRIT 45.6 % (37.0-47.0); HEMOGLOBIN 15.2 g/dL (12.5-16.0); LYMPH# 2.64 K/mm3 (1.50-4.00); MEAN CELL VOLUME 112 fl (78-100); MEAN CORPUSCULAR HEMOGLOBIN 37 pg (27-31); MEAN CORPUSCULAR HGB CONC 33 g/dL (33-37); MEAN PLATELET VOLUME 10.5 fl (7.4-10.4); MONO # 1.23 K/mm3 (0.20-0.80); NEU # 5.05 K/mm3 (1.40-6.50); PLATELET COUNT 182 K/mm3 (130-400); RED BLOOD COUNT 4.09 M/mm3 (4.10-5.30); RED CELL DISTRIBUTION WIDTH 11.7 % (11.5-14.5); WHITE BLOOD COUNT 9.1 K/mm3 (4.8-10.8)
[2022-09-12 14:05] LABS: POTASSIUM 4.9 mmol/L (3.5-5.1)
[2022-09-12 14:06] LABS: ALBUMIN 4.4 g/dL (3.4-4.8); CALCIUM 10.2 mg/dL (8.3-10.5)
[2022-09-12 14:08] LABS: TOTAL PROTEIN 7.9 g/dL (6.2-8.1)
[2022-09-12 14:09] LABS: TOTAL BILIRUBIN 0.4 mg/dL (0.2-1.2)
== END ==
LOC: LAB 12:23
PROVIDERS: Internal Medicine
DX: E03.4 Atrophy of thyroid (acquired) (principal)

== ENCOUNTER → 2022-09-20 | Outpatient (CLI) | payer BC, MEDICARE ==
[2022-09-20 13:19] LABS: HEMATOCRIT 48.2 % (37.0-47.0); HEMOGLOBIN 16.3 g/dL (12.5-16.0); MEAN PLATELET VOLUME 10.8 fl (7.4-10.4); RED BLOOD COUNT 4.4 M/mm3 (4.10-5.30); RED CELL DISTRIBUTION WIDTH 11.1 % (11.5-14.5); WHITE BLOOD COUNT 9.7 K/mm3 (4.8-10.8)
== END ==
LOC: LAB 13:01
PROVIDERS: Internal Medicine Medical Oncology
DX: E83.119 Hemochromatosis, unspecified (principal)

== ENCOUNTER → 2023-01-18 | Outpatient (CLI) | payer MEDICARE ==
[2023-01-18 14:00] LABS: HEMATOCRIT 41.5 % (37.0-47.0); HEMOGLOBIN 13.6 g/dL (12.5-16.0)
== END ==
LOC: LAB 13:36
PROVIDERS: Internal Medicine Medical Oncology
DX: E83.119 Hemochromatosis, unspecified (principal)

== ENCOUNTER → 2023-07-01 | Outpatient (CLI) | payer MEDICARE ==
[~2023-07-01] VITALS: Ht 160 cm; Wt 90.2 kg
[2023-07-01 13:49] LABS: BASO # 0.05 K/mm3 (0.02-0.10); EOS % 1.1 % (1.0-5.0); HEMATOCRIT 42.6 % (37.0-47.0); HEMOGLOBIN 13.5 g/dL (12.5-16.0); LYMPH# 2.69 K/mm3 (1.50-4.00); MEAN CELL VOLUME 101 fl (78-100); MEAN CORPUSCULAR HEMOGLOBIN 32 pg (27-31); MEAN CORPUSCULAR HGB CONC 32 g/dL (33-37); MEAN PLATELET VOLUME 9.9 fl (7.4-10.4); MONO # 1.16 K/mm3 (0.20-0.80); NEU # 5.37 K/mm3 (1.40-6.50); PLATELET COUNT 247 K/mm3 (130-400); RED BLOOD COUNT 4.21 M/mm3 (4.10-5.30); RED CELL DISTRIBUTION WIDTH 12.4 % (11.5-14.5); WHITE BLOOD COUNT 9.4 K/mm3 (4.8-10.8)
[2023-07-01 14:03] LABS: ALBUMIN 4.1 g/dL (3.4-4.8); POTASSIUM 5.4 mmol/L (3.5-5.1)
[2023-07-01 14:04] LABS: CALCIUM 10.5 mg/dL (8.3-10.5)
[2023-07-01 14:05] LABS: TOTAL PROTEIN 7.6 g/dL (6.2-8.1)
[2023-07-01 14:07] LABS: TOTAL BILIRUBIN 0.5 mg/dL (0.2-1.2)
[2023-07-01 14:35] VITALS: BP 111/79
[2023-07-01 15:20] VITALS: BP 130/78
== END ==
LOC: LAB 13:29
DX: E83.119 Hemochromatosis, unspecified (principal)
CPT/HCPCS: J7040

== ENCOUNTER → 2023-08-16 | Outpatient (CLI) | payer MEDICARE ==
[2023-08-16 12:31] LABS: BASO # 0.03 K/mm3 (0.02-0.10); EOS # 0.12 K/mm3 (0.04-0.40); EOS % 1.5 % (1.0-5.0); HEMATOCRIT 39.5 % (37.0-47.0); HEMOGLOBIN 12.7 g/dL (12.5-16.0); LYMPH# 2.82 K/mm3 (1.50-4.00); MEAN CELL VOLUME 101 fl (78-100); MEAN CORPUSCULAR HEMOGLOBIN 32 pg (27-31); MEAN CORPUSCULAR HGB CONC 32 g/dL (33-37); MEAN PLATELET VOLUME 10.8 fl (7.4-10.4); MONO # 1.12 K/mm3 (0.20-0.80); NEU # 3.63 K/mm3 (1.40-6.50); PLATELET COUNT 220 K/mm3 (130-400); RED BLOOD COUNT 3.93 M/mm3 (4.10-5.30); RED CELL DISTRIBUTION WIDTH 12.6 % (11.5-14.5); WHITE BLOOD COUNT 7.8 K/mm3 (4.8-10.8)
[2023-08-16 12:39] LABS: ALBUMIN 3.8 g/dL (3.4-4.8)
[2023-08-16 12:40] LABS: CALCIUM 9.5 mg/dL (8.3-10.5)
[2023-08-16 12:42] LABS: TOTAL PROTEIN 7.4 g/dL (6.2-8.1)
[2023-08-16 12:43] LABS: TOTAL BILIRUBIN 0.2 mg/dL (0.2-1.2)
== END ==
LOC: LAB 11:04
PROVIDERS: Internal Medicine
DX: E83.119 Hemochromatosis, unspecified (principal)

== ENCOUNTER 2023-09-10 11:07 | Outpatient (RCR) | payer MEDICARE ==
[~2023-09-10] VITALS: Ht 160 cm; Wt 90.2 kg
[2023-09-10 12:18] VITALS: BP 181/111
== END 2023-09-19 | disposition home or self-care (01) ==
LOC: AMSURD
DX: E83.119 Hemochromatosis, unspecified (principal)
CPT/HCPCS: J7040

== ENCOUNTER 2023-10-03 11:00 | Outpatient (RCR) | payer MEDICARE ==
[2023-09-25 11:30] VITALS: BP 119/60
[~2023-10-03] VITALS: Ht 160 cm; Wt 90.2 kg
[2023-10-03 11:00] VITALS: BP 177/107
--- NOTE | 2023-10-03 12:23 | NUR ---
CONTACTED DR. VALENCIA's NURSE TO NOTIFY OF LAB VALUES. AWAITNG CALL BACK.
--- NOTE | 2023-10-03 12:39 | NUR ---
[facility] AT THIS [facility] AND NOTIFIED THIS NURSE THAT [facility] WANTS TO SKIP TODAYS THERAPEUTIC PHLEBOTOMY. PATIENT IS TO SEE THEM IN CLINIC 10/07/23 AND WILL REPORT ANY NEW ORDERS THEY COME. PATIENT AND LAB AWARE.
== END 2023-10-20 | disposition home or self-care (01) ==
LOC: AMSURD
DX: E83.119 Hemochromatosis, unspecified (principal)
CPT/HCPCS: J7040

== ENCOUNTER → 2024-03-05 | Outpatient (CLI) | payer MEDICARE ==
[~2024-03-05] MED LIST changes: +CELEXA 20MG20 MG/TA1 PO
[2024-04-30 13:26] LABS: BASO # 0.04 K/mm3 (0.02-0.10); EOS # 0.15 K/mm3 (0.04-0.40); EOS % 1.9 % (1.0-5.0); HEMATOCRIT 41.7 % (37.0-47.0); HEMOGLOBIN 13.3 g/dL (12.5-16.0); LYMPH# 2.24 K/mm3 (1.50-4.00); MEAN CELL VOLUME 100 fl (78-100); MEAN CORPUSCULAR HEMOGLOBIN 32 pg (27-31); MEAN CORPUSCULAR HGB CONC 32 g/dL (33-37); MEAN PLATELET VOLUME 10.6 fl (7.4-10.4); NEU # 4.46 K/mm3 (1.40-6.50); PLATELET COUNT 231 K/mm3 (130-400); RED BLOOD COUNT 4.16 M/mm3 (4.10-5.30); RED CELL DISTRIBUTION WIDTH 12.8 % (11.5-14.5); WHITE BLOOD COUNT 7.7 K/mm3 (4.8-10.8)
[2024-04-30 13:43] LABS: CALCIUM 9.5 mg/dL (8.3-10.5); MAGNESIUM 1.96 mg/dL (1.60-2.60); TOTAL BILIRUBIN 0.3 mg/dL (0.2-1.2)
[2024-05-01 14:35] LABS: LEVETIRACETAM (KEPPRA) 51.8
== END ==
LOC: LAB 08:00
PROVIDERS: Internal Medicine
DX: I48.0 Paroxysmal atrial fibrillation (principal); E78.2 Mixed hyperlipidemia; G40.909 Epilepsy, unspecified, not intractable, without status epilepticus; K90.9 Intestinal malabsorption, unspecified; E03.4 Atrophy of thyroid (acquired)

== ENCOUNTER → 2024-04-16 | Outpatient (CLI) | payer MEDICARE ==
[2024-04-16 12:52] LABS: BASO # 0.05 K/mm3 (0.02-0.10); EOS # 0.15 K/mm3 (0.04-0.40); EOS % 1.6 % (1.0-5.0); HEMATOCRIT 43.8 % (37.0-47.0); LYMPH# 2.17 K/mm3 (1.50-4.00); MEAN CELL VOLUME 101 fl (78-100); MEAN CORPUSCULAR HEMOGLOBIN 32 pg (27-31); MEAN CORPUSCULAR HGB CONC 32 g/dL (33-37); MEAN PLATELET VOLUME 10.5 fl (7.4-10.4); MONO # 0.96 K/mm3 (0.20-0.80); NEU # 5.83 K/mm3 (1.40-6.50); RED BLOOD COUNT 4.32 M/mm3 (4.10-5.30); RED CELL DISTRIBUTION WIDTH 13.5 % (11.5-14.5); WHITE BLOOD COUNT 9.2 K/mm3 (4.8-10.8)
[2024-04-16 13:21] LABS: PLATELET COUNT 165 K/mm3 (130-400)
== END ==
LOC: LAB 12:23
PROVIDERS: Internal Medicine
DX: E83.119 Hemochromatosis, unspecified (principal)

== ENCOUNTER → 2024-04-22 | Outpatient (CLI) | payer MEDICARE ==
[2024-04-22 12:33] LABS: HEMATOCRIT 41.9 % (37.0-47.0); HEMOGLOBIN 13.6 g/dL (12.5-16.0)
== END ==
LOC: LAB 12:07
PROVIDERS: Internal Medicine
DX: E83.119 Hemochromatosis, unspecified (principal)

== ENCOUNTER → 2024-04-30 | Outpatient (CLI) | payer MEDICARE ==
[2024-04-30 13:50] LABS: HEMATOCRIT 38.5 % (37.0-47.0); HEMOGLOBIN 12.6 g/dL (12.5-16.0)
== END ==
LOC: LAB 13:19
PROVIDERS: Internal Medicine
DX: E83.119 Hemochromatosis, unspecified (principal)

== ENCOUNTER → 2024-05-04 | Outpatient (CLI) | payer MEDICARE | LOC: LAB 12:34 | DX: E83.119 Hemochromatosis, unspecified (principal) ==

== ENCOUNTER → 2024-07-02 | Outpatient (CLI) | payer MEDICARE ==
[2024-07-02 14:31] LABS: HEMATOCRIT 39.8 % (37.0-47.0); HEMOGLOBIN 12.9 g/dL (12.5-16.0)
== END ==
LOC: LAB 14:35
PROVIDERS: Internal Medicine
DX: I95.1 Orthostatic hypotension (principal); E83.119 Hemochromatosis, unspecified

== ENCOUNTER → 2024-07-09 | Outpatient (CLI) | payer MEDICARE ==
[~2024-07-09] MED LIST changes: +NS 500 ML IV SCH
[2024-07-09 11:45] LABS: HEMATOCRIT 33.9 % (37.0-47.0); HEMOGLOBIN 11.2 g/dL (12.5-16.0)
== END ==
LOC: LAB 10:59
PROVIDERS: Internal Medicine
DX: E83.119 Hemochromatosis, unspecified (principal)

== ENCOUNTER → 2024-07-16 | Outpatient (CLI) | payer MEDICARE ==
[~2024-07-16] MED LIST changes: +LASIX20 M1 PO; -NS 500 ML IV SCH
[2024-07-16 12:30] LABS: HEMOGLOBIN 10.3 g/dL (12.5-16.0)
== END ==
LOC: LAB 12:00
DX: E83.119 Hemochromatosis, unspecified (principal)

== ENCOUNTER → 2024-07-27 | Outpatient (CLI) | payer MEDICARE ==
[~2024-07-27] MED LIST changes: -LASIX20 M1 PO
[2024-07-27 13:59] LABS: BASO # 0.04 K/mm3 (0.02-0.10); EOS # 0.07 K/mm3 (0.04-0.40); EOS % 0.6 % (1.0-5.0); HEMATOCRIT 30.6 % (37.0-47.0); LYMPH# 1.94 K/mm3 (1.50-4.00); MEAN CELL VOLUME 98 fl (78-100); MEAN CORPUSCULAR HEMOGLOBIN 32 pg (27-31); MEAN CORPUSCULAR HGB CONC 33 g/dL (33-37); MONO # 0.99 K/mm3 (0.20-0.80); NEU # 7.84 K/mm3 (1.40-6.50); PLATELET COUNT 304 K/mm3 (130-400); RED BLOOD COUNT 3.13 M/mm3 (4.10-5.30)
[2024-07-27 14:00] LABS: CALCIUM 9.6 mg/dL (8.3-10.5)
[2024-07-27 14:01] LABS: TOTAL PROTEIN 7.1 g/dL (6.2-8.1)
[2024-07-27 14:03] LABS: TOTAL BILIRUBIN 0.2 mg/dL (0.2-1.2)
[2024-07-27 14:09] LABS: MAGNESIUM 1.67 mg/dL (1.60-2.60)
== END ==
LOC: LAB 07:15
PROVIDERS: Internal Medicine
DX: Z12.11 Encounter for screening for malignant neoplasm of colon (principal); E83.119 Hemochromatosis, unspecified; E03.4 Atrophy of thyroid (acquired); I10 Essential (primary) hypertension; K90.9 Intestinal malabsorption, unspecified; E78.2 Mixed hyperlipidemia; R73.9 Hyperglycemia, unspecified

== ENCOUNTER → 2024-08-04 | Outpatient (CLI) | payer MEDICARE ==
[~2024-08-04] MED LIST changes: +LASIX20 M1 PO
[2024-08-04 10:46] LABS: BASO # 0.03 K/mm3 (0.02-0.10); EOS # 0.17 K/mm3 (0.04-0.40); EOS % 1.8 % (1.0-5.0); HEMATOCRIT 29.1 % (37.0-47.0); LYMPH# 1.46 K/mm3 (1.50-4.00); MEAN CELL VOLUME 100 fl (78-100); MEAN CORPUSCULAR HEMOGLOBIN 31 pg (27-31); MEAN CORPUSCULAR HGB CONC 31 g/dL (33-37); MEAN PLATELET VOLUME 10.5 fl (7.4-10.4); MONO # 1.31 K/mm3 (0.20-0.80); NEU # 6.65 K/mm3 (1.40-6.50); PLATELET COUNT 242 K/mm3 (130-400); WHITE BLOOD COUNT 9.7 K/mm3 (4.8-10.8)
[2024-08-04 10:58] LABS: ALBUMIN 3.7 g/dL (3.4-4.8)
[2024-08-04 11:01] LABS: TOTAL PROTEIN 6.8 g/dL (6.2-8.1)
[2024-08-04 11:02] LABS: TOTAL BILIRUBIN 0.5 mg/dL (0.2-1.2)
[2024-08-04 11:07] LABS: MAGNESIUM 1.79 mg/dL (1.60-2.60)
== END ==
LOC: LAB 10:03
PROVIDERS: Internal Medicine
DX: E83.119 Hemochromatosis, unspecified (principal); I10 Essential (primary) hypertension

== ENCOUNTER → 2024-08-11 | Outpatient (CLI) | payer MEDICARE ==
[2024-08-11 15:57] LABS: HEMATOCRIT 34.9 % (37.0-47.0); HEMOGLOBIN 11.1 g/dL (12.5-16.0)
[2024-08-11 16:11] LABS: ALBUMIN 4.1 g/dL (3.4-4.8)
[2024-08-11 16:12] LABS: CALCIUM 12.3 mg/dL (8.3-10.5)
[2024-08-11 16:13] LABS: TOTAL PROTEIN 7.7 g/dL (6.2-8.1)
[2024-08-11 16:15] LABS: TOTAL BILIRUBIN 0.5 mg/dL (0.2-1.2)
[2024-08-11 16:20] LABS: MAGNESIUM 1.68 mg/dL (1.60-2.60)
[2024-08-11 17:02] LABS: BASO # 0.05 K/mm3 (0.02-0.10); EOS # 0.11 K/mm3 (0.04-0.40); EOS % 1.4 % (1.0-5.0); LYMPH# 2.05 K/mm3 (1.50-4.00); MEAN CELL VOLUME 95 fl (78-100); MEAN CORPUSCULAR HEMOGLOBIN 30 pg (27-31); MEAN CORPUSCULAR HGB CONC 32 g/dL (33-37); MONO # 0.83 K/mm3 (0.20-0.80); NEU # 4.83 K/mm3 (1.40-6.50); PLATELET COUNT 328 K/mm3 (130-400); RED BLOOD COUNT 3.71 M/mm3 (4.10-5.30); RED CELL DISTRIBUTION WIDTH 12.5 % (11.5-14.5); WHITE BLOOD COUNT 7.9 K/mm3 (4.8-10.8)
[2024-08-17 13:59] LABS: CORTISOL,URINE AMS
== END ==
LOC: LAB 15:17
PROVIDERS: Internal Medicine
DX: E83.119 Hemochromatosis, unspecified (principal); I10 Essential (primary) hypertension; R06.00 Dyspnea, unspecified

== ENCOUNTER → 2024-08-15 | Outpatient (CLI) | payer MEDICARE | LOC: RAD 07:18 | DX: R06.00 Dyspnea, unspecified (principal) ==

== ENCOUNTER 2024-08-17 09:44 | Outpatient (RCR) | payer MEDICARE ==
--- NOTE | 2024-07-27 14:23 | NUR ---
CRITICAL CO2 VALUE AND LOW H&H CALLED TO ARIC HERNANDEZ RN. HAD TO LEAVE A MESSAGE WITH JOHN AT THE DESK. WAITING FOR A RETURN PHONE CALL.
[2024-07-27 14:36] VITALS: BP 123/78
--- NOTE | 2024-07-27 14:38 | NUR ---
PT'S PICC DRSG WAS INTACT ENOUGH TO COVER INSERTION SITE, BUT OTHERWISE HAD COME LOOSE AND PT HAD REINFORCED DRSG WITH SILK TAPE. THERE IS A REDDENED IRRITATED AREA UNDER EDGE OF PICC DRSG. APPLIED A PIECE OF REPLICARE UNDER STATLOCK AND OVER THE REDDENED AREA TO PROTECT IT. NO R/S AT INSERTION SITE. PICC HAS BRISK BLOOD RETURN AND FLUSHES EASILY.
--- NOTE | 2024-07-27 15:23 | NUR ---
FERRITIN LEVEL CALLED TO DR ROMERO'S NURSE, ARIC. WILL HOLD PHLEBOTOMY TODAY SINCE FERRITIN IS AT 50. PROVIDER STILL WANTS US TO GIVE PT IVF NS 500ML. PT IS AWARE AND IN AGREEMENT.
[2024-08-04 10:17] VITALS: BP 155/83
--- NOTE | 2024-08-04 11:14 | NUR ---
PT STATES SHE HAS BEEN FEELING WINDED AT HOME THIS WEEK, ESPECIALLY WHEN GOING UP STAIRS. EXERTIONAL DYSPNEA NOTED TODAY ALSO. O2SATS 95-96% ON RA. RT PICC LINE DRSG WAS WET AND COMING OFF WHEN PT ARRIVED TODAY. SHE STATES IT GOT WET IN THE SHOWER TODAY. INSERTION SITE IS CLEAN WITH NO REDNESS OR SWELLING. CHANGED PICC DRSG PER PROTOCOL.
--- NOTE | 2024-08-04 12:20 | NUR ---
HGB IS 9.[address] ROMERO. HOLDING PHLEBOTOMY TODAY. ALSO REPORTED PT'S EXERTIONAL DYSPNEA TO DR ROMERO'S UROLOGY SURGEON. WAITING TO HEAR BACK TO HOW SHE WANTS US TO PROCEED.
--- NOTE | 2024-08-04 13:06 | NUR ---
DR ROMERO'S TRANSIT CLERK CALLED BACK, STATING THE HE DOES NOT WANT PT TO GET IVF TODAY AND WOULD LIKE FOR HER TO EITHER MAKE AN APPT TO BE SEEN IN HIS CLINIC FOR THE EXERTIONAL DYSPNEA OR BE SEEN IN ER IF NEEDED. PT'S O2 SATS ARE 96% ON RA AND SHE DOES NOT FEEL SHE NEEDS TO BE SEEN IN ER. WILL SCHEDULE AN APPT WITH DR ROMERO. VSS PT LEFT [facility]OS[facility] AMBULATORY WITH SERVICE DOG .
[2024-08-04 13:11] VITALS: BP 170/90
[2024-08-06 09:24] VITALS: BP 142/85
--- NOTE | 2024-08-06 09:57 | NUR ---
pt was seen by Dr Harmon this am and he said her PICC drsg was wet and needed changed. PICC drsg changed per protocol.
[2024-08-11 15:30] VITALS: BP 136/84
--- NOTE | 2024-08-11 17:03 | NUR ---
called lab results to dr darden's nurse. Holding phlebotomy today. just did her PICC care and dressing change
[~2024-08-17] VITALS: Ht 160 cm; Wt 90.2 kg
[~2024-08-17 09:44] MED LIST changes: +NS 500 ML IV SCH
[2024-08-17 09:59] VITALS: BP 147/78
--- NOTE | 2024-08-17 10:46 | NUR ---
PT HERE FOR THERAPEUTIC PHLEBOTOMY AND PICC CARE. BLOOD DRAWN FROM PICC FOR H&H PRIOR TO PHLEBOTOMY. PICC CARE DONE. HGB 9.8. HOLDING PHLEBOTOMY TODAY. PT LEFT HOSPT AMBULATORY .
== END 2024-08-20 | disposition home or self-care (01) ==
LOC: AMSURD
DX: I95.1 Orthostatic hypotension (principal); E83.119 Hemochromatosis, unspecified
CPT/HCPCS: J7040